=== PATIENT | female | born 1990 | race African-American/Black ===

== ENCOUNTER 2017-09-22 12:51 | Emergency (ER) | payer OTHER ==
[~2017-09-22] VITALS: Ht 154.9 cm; Wt 47.4 kg
[~2017-09-22 12:51] MED LIST: CHROMAGEN,1 CAPSULE PO; Folvite PO; PRENATAL1 EACH PO
[2017-09-22 15:09] VITALS: BP 130/85
== END 2017-09-22 15:09 | disposition home or self-care (01) ==
LOC: EME 12:51
PROC: 0HQFXZZ Repair Right Hand Skin, External Approach (ICD-10-PCS; principal; 2017-09-22)
DX: S61.411A Laceration without foreign body of right hand, initial encounter (principal); W26.8XXA Contact with other sharp object(s), not elsewhere classified, initial encounter; F17.200 Nicotine dependence, unspecified, uncomplicated; F14.90 Cocaine use, unspecified, uncomplicated
CPT/HCPCS: 73130; 99281; 99283